=== PATIENT | male | born 1990 | race Two or more races ===

== ENCOUNTER 2022-03-28 00:56 | Emergency (ER) | payer SELFPAY ==
[~2022-03-28] VITALS: Ht 165.1 cm; Wt 54.4 kg
[2022-03-28 01:21] VITALS: BP 136/66
== END 2022-03-28 02:12 ==
LOC: ER 01:01
DX: I10 Essential (primary) hypertension; F17.200 Nicotine dependence, unspecified, uncomplicated; Z87.19 Personal history of other diseases of the digestive system